=== PATIENT | male | born 1950 | race Two or more races ===

== ENCOUNTER 2018-06-05 08:07 | Outpatient (CLI) | payer OTHER | END 2018-06-05 09:19 | disposition home or self-care (01) | LOC: LAB 08:07 | DX: M54.2 Cervicalgia (principal); Z13.89 Encounter for screening for other disorder; Z13.220 Encounter for screening for lipoid disorders; Z12.5 Encounter for screening for malignant neoplasm of prostate; Z12.11 Encounter for screening for malignant neoplasm of colon; Z13.1 Encounter for screening for diabetes mellitus ==

== ENCOUNTER 2019-04-10 06:40 | Outpatient (CLI) | payer OTHER | END 2019-04-10 06:52 | disposition home or self-care (01) | LOC: LAB 06:40 | DX: Z12.5 Encounter for screening for malignant neoplasm of prostate (principal); Z12.11 Encounter for screening for malignant neoplasm of colon; Z13.220 Encounter for screening for lipoid disorders; Z13.1 Encounter for screening for diabetes mellitus ==